=== PATIENT | female | born 1945 | race Caucasian/White ===

== ENCOUNTER 2017-03-13 22:13 | Emergency (ER) | payer MEDICARE, OTHER ==
[2017-03-13] MEDS ORDERED: Pantoprazole 40 MG Vial IVPUSH ONE (22:18)
[2017-03-13] MEDS ORDERED: Ondansetron 4 MG/2 ML SDV IVPUSH ONE (22:18)
[2017-03-13] MEDS ORDERED: Sodium Chloride 0.9% 1,000 ML IV ONE (22:18)
--- NOTE | 2017-03-13 22:20 | EDM.PDOC ---
ED HPI GENERAL MEDICAL PROBLEM - General Stated Complaint: HEADACHE Time Seen by Provider: 03/13/17 22:13 Source of Information: Reports: Patient, Family History Limitations: Reports: No Limitations - History of Present Illness INITIAL COMMENTS - FREE TEXT/NARRATIVE: 72 years old w f was seen this am by myself in the ed for HTN, Sinusitis and a UTI. Pt was given Toradol, Tylonol # 3 and Abx and did fine on D/C to home. Pt' s called at about 9 pm his is not feeling well. She was nauseated and vomiting, unable to keep any food down. BP 172/92 puls 102 temp 36.6 RR 18 Pulse ox 97% on RA. Onset: Today Onset Date: 03/13/17 Onset Time: 22:00 Duration: Minutes:, Hour(s): Location: Reports: Abdomen Quality: Reports: Burning Severity: Mild Improves with: Reports: Rest Worsens with: Reports: Eating Context: Reports: Other (possible SE from meds) Associated Symptoms: Reports: Headaches, Nausea/Vomiting - Related Data Allergies Allergy/AdvReac Type Severity Reaction Status Date / Time No Known Allergies Allergy Verified 03/13/17 07:49 Home Meds: Home Meds Acetaminophen with Codeine [Tylenol with Codeine #3 Tablet] 1 each PO Q6HR PRN # 10 tablet 03/13/17 [Rx] Aspirin [Adult Low Dose Aspirin EC] 81 mg PO DAILY 03/13/17 [History] Calcium Carbonate/Vitamin D3 [Calcium 600 + Vit D Tablet] 1 tab DAILY 03/13/17 [ History] Ciprofloxacin HCl [Cipro] 500 mg PO BID #20 tablet 03/13/17 [Rx] Losartan/Hydrochlorothiazide [Losartan-HCTZ 100-12.5 MG] 1 tab DAILY 03/13/17 [ History] Multivitamin [Multi-Vitamin Daily] 1 tab DAILY 03/13/17 [History] Omeprazole 20 mg PO BEDTIME #20 cap.sr 03/14/17 [Rx] Ondansetron [Zofran ODT] 4 mg PO Q6H PRN #10 tab.dis 03/14/17 [Rx] Past Medical History HEENT History: Reports: Cataract Cardiovascular History: Reports: Hypertension Gastrointestinal History: Reports: None Genitourinary History: Reports: Pyelonephritis, UTI, Recurrent [employer] History: Reports: Neurological History: Reports: Migraines Psychiatric History: Reports: Depression Endocrine/Metabolic History: Reports: Other (See Below) Other Endocrine/Metabolic History: states had thyroid problems when , not now. - Infectious Disease History Infectious Disease History: Reports: Chicken Pox, Measles, Mumps, Shingles - Past Surgical History HEENT Surgical History: Reports: None GI Surgical History: Reports: None Female Surgical History: Reports: Hysterectomy Neurological Surgical History: Reports: None Social & Family History - Family History Family Medical History: Noncontributory - Tobacco Use Smoking Status *Q: Former Smoker Years of Tobacco use: 20 Used Tobacco, but Quit: Yes Month Tobacco Last Used: unknown - Caffeine Use Caffeine Use: Reports: Coffee, Soda, Tea - Alcohol Use Days Per Week of Alcohol Use: 7 Number of Drinks Per Day: 1 Total Drinks Per Week: 7 - Recreational Drug Use Recreational Drug Use: No ED ROS GENERAL - Review of Systems Review Of Systems: See Below Constitutional: Reports: No Symptoms HEENT: Reports: No Symptoms Respiratory: Reports: No Symptoms Cardiovascular: Reports: No Symptoms, Chest Pain, Blood Pressure Problem Endocrine: Reports: No Symptoms GI/Abdominal: Reports: Nausea, Vomiting : Reports: No Symptoms Musculoskeletal: Reports: No Symptoms Skin: Reports: No Symptoms Neurological: Reports: No Symptoms Psychiatric: Reports: No Symptoms Hematologic/Lymphatic: Reports: No Symptoms Immunologic: Reports: No Symptoms ED EXAM, GI/ABD - Physical Exam Exam: See Below Exam Limited By: No Limitations General Appearance: Alert, WD/WN, Mild Distress Eyes: Bilateral: Normal Appearance Ears: Normal External Exam Nose: Normal Inspection Throat/Mouth: Normal Inspection Head: Atraumatic, Normocephalic Neck: Normal Inspection, Supple Respiratory/Chest: No Respiratory Distress, Lungs Clear, Normal Breath Sounds Cardiovascular: Normal Peripheral Pulses, Regular Rate, Rhythm, No Edema, No Gallop GI/Abdominal Exam: Normal Bowel Sounds, Soft, Non-Tender, No Organomegaly (Female) Exam: Deferred Rectal (Female) Exam: Deferred Back Exam: Normal Inspection, Full Range of Motion Extremities: Normal Inspection, Normal Range of Motion, Non-Tender, No Pedal Edema Neurological: Alert, Oriented, CN II-XII Intact, Normal Cognition, Normal Gait Psychiatric: Normal Affect, Normal Mood Skin Exam: Warm, Dry, Intact, Normal Color, No Rash Lymphatic: No Adenopathy Course - Vital Signs Text/Narrative:: 72 years old w f was seen this am by myself in the ed for HTN, Sinusitis and a UTI. Pt was given Toradol, Tylonol # 3 and Abx and did fine on D/C to home. Pt' s called at about 9 pm his is not feeling well. She was nauseated and vomiting, unable to keep any food down. BP 172/92 puls 102 temp 36.6 RR 18 Pulse ox 97% on RA.PE: WNWDWF with nausea and minor epigastric discomfort. Labs: Done in am Impression: Possible SE from Tylenol with codeine, dehydration, tension H/A Tx: Zofran, Toradol and protonix Reexam: Pain, nausea subsided and the patient was able viola eat a Popsicle Plan: D/C with instructions Last Recorded V/S: Last Vital Signs Temp 37.0 C 03/13/17 22:29 Pulse 104 H 03/13/17 22:29 Resp 18 03/13/17 22:29 BP 174/72 H 03/13/17 22:29 Pulse Ox 95 03/13/17 22:29 - Orders/Labs/Meds Meds: Medications Discontinued Medications Generic Name Dose Route Start Last Admin Trade Name Freq PRN Reason Stop Dose Admin Sodium Chloride 1,000 mls @ 999 mls/hr 03/13/17 22:18 03/14/17 00:08 Normal Saline IV 03/13/17 23:18 999 mls/hr .BOLUS ONE Administration Ketorolac Tromethamine 15 mg 03/14/17 00:36 Toradol IVPUSH 03/14/17 00:37 ONETIME STA Labetalol HCl 10 mg 03/14/17 00:32 Normodyne IVPUSH 03/14/17 00:33 ONETIME ONE Protocol Ondansetron HCl 8 mg 03/13/17 22:18 03/14/17 00:08 Zofran IVPUSH 03/13/17 22:19 8 mg ONETIME ONE Administration Pantoprazole Sodium 40 mg 03/13/17 22:18 03/14/17 00:08 Protonix Iv IVPUSH 03/13/17 22:19 40 mg ONETIME ONE Administration Departure - Departure Time of Disposition: 01:15 Disposition: Home, Self-Care 01 Condition: Good Clinical Impression: Nausea Gastritis Qualifiers: Gastritis type: unspecified gastritis Chronicity: acute Gastritis bleeding: without bleeding Qualified Code(s): K29.00 - Acute gastritis without bleeding - Discharge Information Prescriptions: Omeprazole 20 mg PO BEDTIME #20 cap.sr Ondansetron [Zofran ODT] 4 mg PO Q6H PRN #10 tab.dis PRN Reason: nasuea Referrals: Laci Murillo MD [Primary Care Provider] - Forms: ED Department Discharge Additional Instructions: Please advance diet as tolerated, please take the meds as recommended, please f/ u, come back if your symptoms get worse acutely.
[2017-03-14] MEDS ORDERED: Labetalol 20 MG/4 ML Syringe IVPUSH ONE (00:32)
[2017-03-14] MEDS ORDERED: Ketorolac 30 MG/ML SDV IVPUSH STA (00:36)
[2017-03-14] MEDS ORDERED: Ondansetron 4 MG Tab.DIS PO ONE (01:15)
== END 2017-03-14 01:20 | disposition home or self-care (01) ==
LOC: FB.ED 22:13
DX: K29.00 Acute gastritis without bleeding (principal); I10 Essential (primary) hypertension; Z87.891 Personal history of nicotine dependence; J01.20 Acute ethmoidal sinusitis, unspecified; N30.00 Acute cystitis without hematuria
CPT/HCPCS: 36415; 70450; 70486; 71046; 80048; 80076; 81001; 82150; 83605; 85025; 85610; 87086; 96361; 96372; 96374; 96375; 99283; 99284; A9270; C9113; J1885; J2405; J7040; J7030